=== PATIENT | male | born 1945 | race Caucasian/White ===

== ENCOUNTER 2017-12-01 09:50 | Inpatient (IN) | payer MEDICARE, SELFPAY ==
[2017-12-01 09:53] VITALS: BP 117/70; PULSE 113; RESP 16; TEMP 36.7; O2SAT 96; BMI 17.2
--- NOTE | 2017-12-01 10:05 | RAD_ITS ---
STUDY: X-RAY CHEST REASON FOR EXAM: Male, 72 years old. Nausea and vomiting since last evening. Patient is being treated with chemotherapy for small cell lung cancer. TECHNIQUE: Single AP portable view of the chest. COMPARISON: Prior comparison studies are not available for review at this time. FINDINGS: There is hyperinflation of the lungs consistent with chronic obstructive lung disease (COPD). There is a calcified nodule at the left lung base adjacent to the hemidiaphragm possibly representing granuloma. There is no demonstrated pleural abnormality. Normal size heart. There are calcified mediastinal and hilar lymph nodes. Normal visualized pulmonary arteries. There is atherosclerotic calcification of the aortic arch with tortuosity. There is demineralization of the osseous structures. There is mild curvature of the thoracic spine with convexity towards the right. Normal visualized ribs, clavicles, and shoulders. There is no demonstrated abnormality of the visualized soft tissue structures of the upper abdomen. RAD/Chest 1 View (Portable) IMPRESSION: COPD without radiographic evidence of acute cardiopulmonary disease. Electronically Signed: Shannon Gee MD at 10:25 EDT , Service support ,
--- NOTE | 2017-12-01 10:05 | CT_ITS ---
STUDY: CT ABDOMEN AND PELVIS WITH CONTRAST REASON FOR EXAM: Male, 72 years old. Epigastric and left lower quadrant abdominal pain. Patient has been treated for lung cancer. RADIATION DOSAGE (If Supplied By Facility): CTDIvol = ( 10.22 ) mGy, DLP = ( 332.19 ) mGycm TECHNIQUE: Transaxial images were obtained from the dome of the diaphragm to the symphysis pubis without oral contrast. 100 ml of Isovue 300 contrast was administered. Multiplanar coronal and sagittal images were reformatted. CT venogram protocol utilized, with delayed images performed during venous phase. Individualized Dose Optimization Techniques Were Used For This CT. COMPARISON: Prior comparable comparison studies are not available for review at this time. FINDINGS: The visualized lung bases are unremarkable. The visualized portions of the heart are within normal limits. There is a small pericardial effusion measuring 1.5 cm in thickness. Normal liver. There is a solitary gallstone. There are multiple benign calcified granulomata of the spleen. Normal pancreas. Normal bilateral adrenal glands. There is a low-attenuation lesion arising from the upper pole of the right kidney measuring approximately 11.2 mm in size. This has attenuation of 35 Hounsfield units suggesting it could be solid. There is a low-attenuation lesion arising from the upper pole of the left kidney measuring approximately 6.9 mm in size. This is too small to characterize. There is no evidence for hydronephrosis, hydroureter or radiopaque ureteral calculus. Normal visualized stomach. There is dilated small bowel with maximum transverse dimension of approximately 3.8 cm. This suggests sequela of small bowel obstruction. This appears to involve the proximal small bowel. The mid and distal small bowel is not dilated. The colon is not dilated. Stool is visible throughout the colon with scattered colonic diverticula. There is a small amount of pelvic fluid. The appendix is visualized and appears normal. There is diffuse atherosclerotic calcification of the abdominal aorta, without a demonstrated aneurysm. No retroperitoneal adenopathy. IVC is patent. Bilateral common iliac veins are widely patient without evidence of extrinsic compression or thrombus. Branches of the internal iliac veins show wide patency without evidence of varicosities. Bilateral external iliac veins and common femoral veins remain patent. Normal urinary bladder. There is enlargement of the prostate gland. There is a small umbilical hernia containing fat. There are diffuse degenerative changes of the visualized lumbar spine. There are degenerative changes of both hips. CT/Abdomen/Pelvis W IV Cont ONLY IMPRESSION: 1. CT findings suggest small bowel obstruction. 2. Possible solid right-sided renal mass. Follow-up is suggested. 3. Extensive vascular calcification of the abdominal aorta and iliac arteries. 4. Cholelithiasis. 5. Small pericardial effusion. Electronically Signed: Shannon Gee MD at 11:33 EDT , Service support ,
--- NOTE | 2017-12-01 10:05 | EKG12_ITS ---
Test Reason : ABNL PAIN Blood Pressure : / mmHG Vent. Rate : 104 BPM Atrial Rate : 104 BPM P-R Int : 148 ms QRS Dur : 082 ms QT Int : 348 ms P-R-T Axes : 084 084 070 degrees QTc Int : 457 ms Sinus tachycardia with Premature supraventricular complexes Otherwise normal ECG Confirmed by ADRIAN ENGEL, PEREZ ([id number]), video news editor INESSA SALINAS ([id number]) on 12/05/2017 1:48:11 PM Referred By: TANIYA Confirmed By:PEREZ CAMPBELL MD
--- NOTE | 2017-12-01 10:12 | ED.DCSUM_ITS ---
- ER Visit Summary Date of Service: 12/01/17 Chief Complaint: Nausea and vomiting History of Present Illness: The patient is a 72 M with non-small cell lung cancer status post chemotherapy. He presents with nausea, vomiting, abdominal pain, and decreased p.o. intake. Symptoms started yesterday and got worse today. Oncologist called concern for mucositis and stomatitis with weight loss. He is also neutropenic. He has also been complaining of shortness of breath. There was a concern for sepsis and he was sent for an evaluation and further care. Physical Examination: Tachycardic at 113. Afebrile. Vitals otherwise normal. Cachectic. Alert and oriented. Appears comfortable. Heart tachycardic but regular. Lungs clear bilaterally. Abdomen is slightly tender in the epigastric and left lower quadrant region. No guarding or rebound. Test Results: EKG, laboratory studies, cultures, urinalysis, chest x-ray, and abdominal CT pending. Emergency Department Course and Treatment: Patient was treated with fluids, morphine, and Zofran while awaiting results. He will be monitored. Neutropenic precautions. Patient is not neutropenic, hemoglobin 11.6 and platelets 108. Sodium 135 and glucose 142. Coags normal. Urinalysis pending. Troponin and lactate normal. Cultures pending. Chest x-ray showed chronic changes and COPD. CT abdomen showed signs of a small bowel obstruction as well as a right renal mass, cholelithiasis, vascular calcifications, and a small pericardial effusion. Patient remained stable. He was improved with fluids, morphine, and Zofran. NG was ordered. Hospitalist contacted for admission. His were given at this time because he did not have a fever or signs of sepsis and he is not neutropenic. Treatment Plan: As above. Disposition: Admission Impression: 1. Lung cancer 2. Mucositis 3. Small bowel obstruction This note was generated with [employer] dictation software. It may contain incorrect words, spelling, and punctuation that were not noted in review of the chart prior to signing ED Disposition - Plan for ED Patient: Chief Complaint: Abd Pain Referrals: Jonny Meyers [Primary Care Provider] -
[2017-12-01 10:31] LABS: Absolute Lymphocyte Count 2.84 X10^3/ul (0.83-4.51); Absolute Neutrophil Count 2.4 X10^3/uL (2.0-7.7); Basophil# 0.02 X10^3/uL; Basophil% 0.3 % (0-1); Eosinophil# 0.02 X10^3/uL; Eosinophils% 0.3 % (0-5); Hematocrit 34.1 % (40-54); Hemoglobin 11.6 g/dl (13.0-16.5); Lymphocyte # 2.84 X10^3/ul (4.0); Lymphocyte % 46.9 % (19-41); Mean Corpuscular Hgb 31.4 pg (27.0-32.0); Mean Corpuscular Volume 92.2 fL (80-94); Mean Platelet Vol. 9.6 fl (6.2-12.0); Monocyte# 0.78 X10^3/uL; Monocyte% 12.9 % (0-10); Neutrophil # 2.37 X10^3/uL (2.7-7.7); Neutrophil % 39.3 % (47-70); Platelet Count 108 K/mm3 (150-450); RBC Distribution Width SD 38.8 fl (35.1-43.9); White Blood Count 6.1 K/mm3 (4.4-11.0)
[2017-12-01 10:32] LABS: POSITIVE COUNT NO; POSITIVE DIFFERENTIAL NO; POSITIVE MORPHOLOGY NO
[2017-12-01] MEDS: Morphine 4 MG/ML Syringe IV (10:38)
[2017-12-01] MEDS: Ondansetron 4 MG/2 ML Vial IV (10:38)
[2017-12-01] MEDS: 0.9% Normal Saline 1,000 ML 999 ML IV (10:38)
[2017-12-01 10:40] VITALS: PULSE 100; RESP 11; TEMP 37.2; O2SAT 97
[2017-12-01 10:50] LABS: ALB/GLOB Ratio 1.1 RATIO (0.9-2.4); AST(SGOT) 12 U/L (15-37); Alanine Aminotransfer ALT/SGPT 13 U/L (16-61); Albumin, Serum 3.9 g/dL (3.2-5.0); Alkaline Phosphatase 86 U/L (45-117); Anion Gap 8 (5-15); BUN 11 mg/dL (7-18); BUN/Creat Ratio 13.9 RATIO (10-20); Chloride 98 mmol/L (98-107); Creatinine, Serum 0.79 mg/dL (0.70-1.30); EST Glomerular Filtration Rate 102 mL/min (>60); Est Glom Filt Rate - Afr Amer 124 mL/min (>60); Estimated Creatinine Clearance 48.51 ml/min; Globulin 3.7 g/dL (2.2-4.2); Glucose 142 mg/dL (74-106); Potassium 3.9 mmol/L (3.5-5.1); Protein, Total 7.6 g/dL (6.4-8.2); Sodium Level 135 mmol/L (136-145)
[2017-12-01 10:52] LABS: Lactic Acid 1.5 mmol/L (0.4-2.0)
[2017-12-01 11:00] LABS: International Normalized Ratio 1.1; Prothrombin Time (Protime)PT. 13.7 SECONDS (11.7-14.9)
--- NOTE | 2017-12-01 11:39 | CASEMGMT ---
Social Work Note In to complete initial assessment with pt as he was targeted as an anticipated admission. Introduced self and role at [facility]. Pt is accompanied by his ex-, Nicolasa, who he reports to live with in a one level home with 2-3 steps for entry and handrails. DME consists of oxygen through [employer], and pt states that he is independent with his ADLs and still drives. PCP is Dr. Jonny Meyers and his oncologist is Dr. Navarro. He has started chemo and he was scheduled for his 3rd treatment on November 21, but his platelets were too low. Discuss palliative care as pt has a cancer diagnosis and COPD. Explain services they provide and pt declines a referral at this time stating that he does not have any symptoms requiring management. Provide with palliative brochure to consider. RN CM to f/u on assigned unit. Christina Chaves, BAGGAGE INSPECTOR, [employer]CRA[employer]
[2017-12-01 12:00] VITALS: PULSE 96; RESP 21
[2017-12-01 12:18] VITALS: BP 135/82; PULSE 93; RESP 16; TEMP 37; O2SAT 96
[2017-12-01 13:24] VITALS: BP 121/74; PULSE 100; RESP 24; O2SAT 93
--- NOTE | 2017-12-01 13:27 | ED.RN ---
Attempted NG. PT was choking and unable to breathe, NG removed, PT recovered. PT asked us to give him a while to recover.
[2017-12-01 14:24] VITALS: BMI 17.1
[2017-12-01 14:26] VITALS: BMI 17.1
[2017-12-01] MEDS: 0.9% Normal Saline 1,000 ML 150 ML IV ×2 (14:53→22:11)
--- NOTE | 2017-12-01 15:24 | HP.PCM_ITS ---
Problem List (1) SBO (small bowel obstruction) Status: Acute (2) Non-small cell lung cancer Status: Chronic (3) Oral mucositis Status: Acute (4) Tobacco abuse Status: Chronic (5) COPD (chronic obstructive pulmonary disease) Status: Chronic History of Present Illness Date of Admission: 12/01/17 Chief Complaint: Nausea, vomiting The patient is a 72 year old M who presents to the emergency room with nausea, vomiting, abdominal pain which began yesterday. He states he has not been able to keep any food or liquids down. He notes a recent approximate 25 pound weight loss. He complains of painful mouth sores. He is currently undergoing chemotherapy with Dr. Navarro for non-small cell lung cancer. His last chemotherapy treatment was 11/21/17. He states he was supposed to have chemotherapy 11/28/17 which was canceled due to low platelets. He has current half pack per day smoker and has a history of COPD. His other medical history includes sleep apnea. He wears oxygen 2 L nasal cannula at bedtime. She denies fever, chills. Denies other associated complaints. States he had a normal bowel movement yesterday morning. Patient denies other chronic medical history. Past Medical History Past Medical History (Chronic Problems): Chronic Problems Non-small cell lung cancer (Chronic) Tobacco abuse (Chronic) COPD (chronic obstructive pulmonary disease) (Chronic) Allergies ethanolamine Allergy (Verified 09/20/14 16:35) Hives Influenza Virus Vaccines Allergy (Verified 12/01/17 09:56) Hives Surgical History: appendectomy Lives: Spouse/ Significant Other Smoking Status: Current every day smoker Tobacco Use: Cigarettes - 1/2 PPD Alcohol: None Drugs: None - *Family History Maternal History Items: No pertinent history Paternal History Items: No pertinent history Review of Systems Constitutional: Reports: Weight Change - -25 lbs. Denies: Chills, Fever HEENT: Reports: - - Painful mouth sores. Cardiovascular: Denies: Chest Pain, Light Headedness, Palpitations, Syncope Respiratory: Reports: Cough - Chronic, Shortness of breath upon exertion - Chronic. Denies: Shortness of Breath Gastrointestinal: Reports: Abdominal Pain, Nausea, Vomiting. Denies: Constipation, Diarrhea, Hematemesis, Hematochezia, Melena Genitourinary: Denies: Dysuria Musculoskeletal: Denies: Joint Pain, Joint Tenderness Skin: Denies: Rash, Wounds Neurological: Denies: Numbness, Tingling, Focal weakness Psychiatric: Denies: Anxiety, Depression, Homicidal Ideations, Suicidal Ideations Hematologic/ Lymphatic: Denies: Easy Bruising, Easy Bleeding VTE Information - Inpt Only VTE Present on Admission: No VTE Mechan Device Prophylaxis: None VTE Pharm Prophylaxis ordered?: Yes Patient Problems: Active and Suspected Problems SBO (small bowel obstruction) (Acute) Oral mucositis (Acute) - Physical Exam General: Alert, Oriented x3, Cooperative, No apparent distress, - - Cachectic HEENT: Atraumatic, PERRLA, EOMI, Normocephalic Oral: Dry Mucosa, Ulcerations Present Neck: Supple, No JVD, Negative Carotid Bruits Lungs: Clear to auscultation, Diminished Cardiovascular: Regular rate, Regular Rhythm, Normal S1, Normal S2, No murmurs Abdomen: Bowel Sounds Present, Soft, Non-Distended, Tender - Mild tenderness to palpation left upper quadrant/left lower quadrant Extremities: No clubbing, No cyanosis, No edema, Capillary Refill Less than 3 Seconds Skin: No rashes, No breakdown Musculoskeletal: No Tenderness to Palpation of Joints or Extremities Neurological: Cranial nerves II-XII grossly intact Psych/Mental Status: Normal Affect, Appropriate Vital Signs Temp Pulse Resp BP Pulse Ox 98.6 F 100 24 H 121/74 H 93 12/01/17 12:18 12/01/17 13:24 12/01/17 13:24 12/01/17 13:24 12/01/17 13:24 Oxygen Flow Rate (L/min) 3 Oxygen Delivery Method Nasal Cannula Weight: 49.583 kg Body Mass Index (BMI) 17.1 Assessment/Plan Active and Suspected Problems SBO (small bowel obstruction) (Acute) Oral mucositis (Acute) 1. Small bowel obstruction with associated nausea, vomiting-CT of abdomen shows small bowel obstruction, possible solid right-sided renal mass, extensive vascular calcification of the abdominal aorta and iliac arteries, cholelithiasis , small pericardial effusion. Patient denies abdominal pain currently. NG was attempted to be placed in the ER which was not successful. Patient denies nausea, vomiting currently. He states he has had poor oral intake due to painful mouth sores. Chest x-ray showed COPD. Remain n.p.o. Continue IV fluids. IV Protonix. Consult surgery. 2. Oral mucositis-secondary to chemotherapy. 3. Non-small cell lung cancer- Follows with Dr. Navarro. Last chemo 11/21/17. Consult oncology. 4. COPD with chronic hypoxic respiratory failure-wears 2 L nasal cannula at bedtime. No acute COPD exacerbation. Albuterol aerosols as needed. 5. Obstructive sleep apnea 6. Tobacco dependence-encourage smoking cessation. Declined nicotine replacement patch. 7. Severe protein calorie nutrition-BMI 17.1. Recent approximate 25 pound weight loss. Consult nutrition. DVT prophylaxis-Lovenox SC This patient was seen by Christina Dao NP-[place] under the supervision of Dr. Pacheco.
--- NOTE | 2017-12-01 16:49 | CON.PCM_ITS ---
Problem List (1) SBO (small bowel obstruction) Status: Acute (2) Non-small cell lung cancer Status: Chronic (3) Oral mucositis Status: Acute (4) Tobacco abuse Status: Chronic - Consult Date of Consult: 12/01/[address] Pacheco regarding patient with metastatic non- small cell lung cancer receiving chemotherapy present with small bowel obstruction and stomatitis. The recommendation will be communicated to Dr. Pacheco and also by electronic medical records - Reason for Consult History of Present Illness Date of Admission: 12/01/17 The patient is a 72 year old M who presents to the emergency room with intractable nausea, vomiting, abdominal pain which began yesterday. He states he has not been able to keep any food or liquids down. He lost 20 pounds since his diagnosis of metastatic lung cancer. Has history of tobacco abuse, COPD and hypertension who presented August with productive cough. CT chest showed a left mass with complete atelectasis hilar and mediastinal adenopathy. 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 Show no brain metastasis, PET scan was positive for left upper lobe tumor with mediastinal lymph node and a rib metastasis. no renal mass or adrenal metastasis. Pathology was also PD- L1 negative. He started chemotherapy 2 weeks ago with Abraxane & Carboplatin. Developed severe mucositis/stomatisis after chemotherapy. He was on nystatin & BMX suspension. Chemotherapy was held on Monday because of severe stomatitis neutropenia. patient still smoking half pack cigarettes per day. His last chemotherapy treatment was 11/21/17. He has a history of COPD. His other medical history includes sleep apnea. He wears oxygen 2 L nasal cannula at bedtime. He denies fever, chills. Denies other associated complaints. States he had a normal bowel movement yesterday morning. Surgical history appendectomy in 2006. No history of Crohn's disease or inflammatory bowel disease. In the emergency room, abdomen was distended and CT scan of the abdomen and pelvis showed small bowel obstruction in the terminal ileum. Additional renal mass? He denies shortness of breath or chest pain. Pain in his left rib has improved since starting chemotherapy. complaint of dry mouth and mouth sores Past Medical History Past Medical History (Chronic Problems): Chronic Problems Non-small cell lung cancer (Chronic) Tobacco abuse (Chronic) COPD (chronic obstructive pulmonary disease) (Chronic) Allergies ethanolamine Allergy (Verified 09/20/14 16:35) Hives Influenza Virus Vaccines Allergy (Verified 12/01/17 09:56) Hives Surgical History: appendectomy Lives: Spouse/ Significant Other Smoking Status: Current every day smoker Tobacco Use: Cigarettes - 1/2 PPD Alcohol: None Drugs: None - *Family History Maternal History Items: No pertinent history Paternal History Items: No pertinent history Review of Systems Constitutional: Reports: Weight Change - -20 lbs. Denies: Chills, Fever HEENT: Reports: - - Painful mouth sores. Cardiovascular: Denies: Chest Pain, Light Headedness, Palpitations, Syncope Respiratory: Reports: Cough - Chronic, Shortness of breath upon exertion - Chronic. Denies: Shortness of Breath Gastrointestinal: Reports: Abdominal Pain, Nausea, Vomiting. Denies: Constipation, Diarrhea, Hematemesis, Hematochezia, Melena Genitourinary: Denies: Dysuria Musculoskeletal: Denies: Joint Pain, Joint Tenderness Skin: Denies: Rash, Wounds Neurological: Denies: Numbness, Tingling, Focal weakness Psychiatric: Denies: Anxiety, Depression, Homicidal Ideations, Suicidal Ideations Hematologic/ Lymphatic: Denies: Easy Bruising, Easy Bleeding SBO (small bowel obstruction) (Acute) Oral mucositis (Acute) - Physical Exam General: Alert, Oriented x3, Cooperative, No apparent distress, - - Cachectic HEENT: Atraumatic, PERRLA, EOMI, Normocephalic Oral: Dry Mucosa, Ulcerations Present, no thrush Neck: Supple, No JVD, Negative Carotid Bruits Lungs: Clear to auscultation, Diminished Cardiovascular: Regular rate, Regular Rhythm, Normal S1, Normal S2, No murmurs Abdomen: Bowel Sounds Present, Soft, Distended, +Tender - Mild tenderness to palpation left upper quadrant/left lower quadrant Extremities: No clubbing, No cyanosis, No edema, Capillary Refill Less than 3 Seconds Skin: No rashes, No breakdown Musculoskeletal: No Tenderness to Palpation of Joints or Extremities Neurological: Cranial nerves II-XII grossly intact Psych/Mental Status: Normal Affect, Appropriate Vital Signs Temp Pulse Resp BP Pulse Ox 98.6 F 100 24 H 121/74 H 93 12/01/17 12:18 12/01/17 13:24 12/01/17 13:24 12/01/17 13:24 12/01/17 13:24 Oxygen Flow Rate (L/min) 3 Oxygen Delivery Method Nasal Cannula Weight: 49.583 kg Body Mass Index (BMI) 17.1 Labs (Last 48 Hours) 12/01/17 12/01/17 12/01/17 10:19 10:19 10:19 WBC 6.1 RBC 3.70 L Hgb 11.6 L Hct 34.1 L MCV 92.2 MCH 31.4 MCHC 34.0 RDW 12.0 RDW Differential 38.8 Plt Count 108 L MPV 9.6 Immature Gran % (Auto) 0.300 Neut % (Auto) 39.3 L Lymph % (Auto) 46.9 H [place] % (Auto) 12.9 H Eos % (Auto) 0.3 Baso % (Auto) 0.3 Absolute Neuts (auto) 2.4 Absolute Lymphs (auto) 2.84 Total Counted Not Reportable PT 13.7 INR 1.1 APTT 32.0 Sodium 135 L Potassium 3.9 Chloride 98 Carbon Dioxide 29.0 Anion Gap 8 BUN 11 Creatinine 0.79 Estim Creat Clear Calc 48.51 Est GFR (MDRD) Af Amer 124 Est GFR (MDRD) Non-Af 102 BUN/Creatinine Ratio 13.9 Glucose 142 H Lactic Acid Calcium 9.0 Total Bilirubin 0.50 AST 12 L ALT 13 L Alkaline Phosphatase 86 Troponin I < 0.02 Total Protein 7.6 Albumin 3.9 Globulin 3.7 Albumin/Globulin Ratio 1.1 12/01/17 10:19 WBC RBC Hgb Hct MCV MCH MCHC RDW RDW Differential Plt Count MPV Immature Gran % (Auto) Neut % (Auto) Lymph % (Auto) [place] % (Auto) Eos % (Auto) Baso % (Auto) Absolute Neuts (auto) Absolute Lymphs (auto) Total Counted PT INR APTT Sodium Potassium Chloride Carbon Dioxide Anion Gap BUN Creatinine Estim Creat Clear Calc Est GFR (MDRD) Af Amer Est GFR (MDRD) Non-Af BUN/Creatinine Ratio Glucose Lactic Acid 1.5 Calcium Total Bilirubin AST ALT Alkaline Phosphatase Troponin I Total Protein Albumin Globulin Albumin/Globulin Ratio Assessment/Plan Active and Suspected Problems SBO (small bowel obstruction) (Acute) Oral mucositis (Acute) Metastatic non-small cell lung cancer on active chemotherapy (Chronic) Recommendations: -Keep n.p.o. surgical evaluation. -IV Fluid replacement & hold NG tube unless patient start vomiting again -PPI & monitor electrolytes -Start Zosyn & Diflucan for possible ileitis/typhlitis -Mouth care & morphine IV as needed for pain -Docolax suppository constipation. -Follow-up KUB-xray morning. -Chemotherapy on hold until patient recovers; I will see him Monday in my office. cc: Dr. Geoffrey Navarro; Dr. Jonny Meyers; Dr. Barb Abad; Dr. Desire Pacheco.
--- NOTE | 2017-12-01 17:43 | PCM.CONS.B ---
- Consult Date of Consult: 12/01/17 - Reason for Consult PATIENT NAME: Kartik Perez. Chief complaint: Metastatic non-small cell lung cancer, history of COPD - I am consulted for SBO HPI: 71 year old pleasant gentleman with history of COPD, hypertension and tobacco abuse who presents with left lung cancer, presently on chemotherapy. Has long history of COPD. Admitted to hospital for nausea/emesis for which patient states that he had all night long. Also with abdominal pain. Presented to ED - normal WBC, normal temp. Because of abdominal pain, CT scan obtained - CT scan obtained - IMPRESSION: 1. CT findings suggest small bowel obstruction. 2. Possible solid right-sided renal mass. Follow-up is suggested. 3. Extensive vascular calcification of the abdominal aorta and iliac arteries. 4. Cholelithiasis. 5. Small pericardial effusion. On examination: patient states that he has passed flatus. Denies abdominal pain. Feels much improved. PAST MEDICAL HISTORY: Chronic obstructive pulmonary disease (COPD) (HCC) Diabetes (HCC) Hypertension Primary cancer of left upper lobe of lung (HCC) 09/18/2017 Squamos cell, 09/08/2017 Stroke (HCC) Tobacco use disorder, continuous PAST SURGICAL HISTORY: APPENDECTOMY 2006 COLONOSCOP W/ OR W/O [facility] SPEC 02/11/2016 Colonoscopy repeat 08/2016 COLONOSCOP W/ OR W/O [facility] SPEC 01/26/2017 Colonoscopy COLONOSCOPY 2006 CURRENT MEDICATIONS: ASPIRIN/ACETAMINOPHEN/CAFFEINE (EXCEDRIN EXTRA STRENGTH ORAL) Take 1 tablet by mouth twice daily. vophevpfttTEUEJ-kpwdan-syhlsdmzw (BMX 1:1:1) 1:1:1 liqd albuterol HFA (VENTOLIN HFA) 90 mcg/actuation inhaler Inhale 2 Puffs as instructed every 4 hours as needed for Wheezing/Shortness of Breath. amoxicillin-clavulanic acid (AUGMENTIN) 875-125 mg per tablet azithromycin (ZITHROMAX) 250 mg tablet LIDOCAINE VISCOUS 2 % solution predniSONE (DELTASONE) 20 mg tablet umeclidinium-vilanterol (ANORO ELLIPTA) 62.5-25 mcg/actuation inhaler Inhale 1 Inhalation as instructed once daily. fluticasone (FLONASE) 50 mcg/actuation nasal spray Use 2 Sprays in each nostril once daily. Rinse mouth after use. nystatin (MYCOSTATIN) 100,000 unit/mL suspension Take 5 mL by mouth four times daily. 1tsp swish in mouth for several minutes, aspirin, enteric coated (ASPIRIN, ENTERIC COATED) 81 mg EC tablet Take 81 mg by mouth once daily. ALLERGIES: Flu Vaccine 2011 Hives FAMILY HISTORY: Adopted: Yes Cancer Sister Lymphoma. Cancer Sister Thyroid. Cancer Sister Throat. 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 Social History Main Topics Smoking status: Current Every Day Smoker Packs/day: 0.50 Years: 0.00 Types: Cigarettes Start date: 1968 Smokeless status: Never Used Comment: Parents smoked in childhood home. Alcohol use: No Drug use: No Sexual activity: No REVIEW OF SYSTEMS: CONSTITUTIONAL: denies fevers, has had weight loss CARDIOVASCULAR: + left chest pain & left shoulder/neck, dyspnea, palpitations, orthopnea, PND, ankle edema. PULM: No dyspnea, + unexplained cough. GI: see HPI : No new urinary complaints, including dysuria, gross hematuria or pyuria. NEURO: No new balance problems, peripheral weakness/paresthesias or numbness of concern. MUSC-SKEL: No new joint pain, swelling, or erythema. ENDOCRINE: denies diabetes PSY: No concerns regarding depression, anxiety or panic. INTEGUMENTARY: No new skin changes (rash, new or changing mole, new growth) PHYSICAL EXAMINATION: 71-year-old thin but not cachectic gentleman appeared to be in acute distress. Temp: 98.2 BP 147/77 Wt 115 lb BMI 19.16 kg/(m^2). HEENT: Head is normocephalic, atraumatic. Sclerae white, conjunctivae pink. PEERL. EOMs are intact. Oropharynx is benign. LYMPHATICS: There is no palpable adenopathy in the neck, supraclavicular region, axillae, or groin. LUNGS: increased AP diameter, Lungs are clear to percussion and auscultation. no wheezing or rales + Left lateral lower rib tenderness with palpation. HEART: Heart is normal without murmurs, gallops, or rubs. ABDOMEN: Soft and nontender, normal bowel sounds, not distended EXTREMITIES: Are without edema. NEUROLOGIC: Exam is physiologic Impression: Known metastatic left lung cancer Presently on chemotherapy SBO by CT scan - clinically resolved Discussion/Plan: patient is presently passing flatus feels hungry Will proceed to clear liquid diet and advance as tolerated ambulation is encouraged
[2017-12-01 17:52] LABS: Bacteria 0 SEEN /hpf (None Seen); Mucous, Urine 0 SEEN /hpf (<or=2+); Red Blood Cells-Urine 0 SEEN /hpf (0-5); White Blood Cells 0 SEEN /hpf (0-5)
[2017-12-01 17:54] LABS: Color, Urine Yellow (Yellow); Glucose, Dipstick Normal (Normal); Leukocyte Esterase-Dipstick Negative /ul (Negative); Nitrite-Dipstick Negative (Negative); Occult Blood-Urine Negative /ul (Negative); Protein-Dipstick 30 mg/dl (Negative); Specific Gravity, Urine 1.015 (1.002-1.030); Urine Bilirubin Dipstick Negative (Negative); Urine Clarity Sl. Cloudy (Clear); Urine Urobilinogen Normal (Normal); Urine pH 6.5 (5.0 - 8.0)
[2017-12-01 17:57] LABS: Ketone-Dipstick 150 mg/dl (Negative)
--- NOTE | 2017-12-01 18:08 | CON.PCM_ITS ---
- Consult Date of Consult: 12/01/17 - Reason for Consult PATIENT NAME: Kartik Perez. Chief complaint: Metastatic non-small cell lung cancer, history of COPD - I am consulted for SBO HPI: 71 year old pleasant gentleman with history of COPD, hypertension and tobacco abuse who presents with left lung cancer, presently on chemotherapy. Has long history of COPD. Admitted to hospital for nausea/emesis for which patient states that he had all night long. Also with abdominal pain. Presented to ED - normal WBC, normal temp. Because of abdominal pain, CT scan obtained - CT scan obtained - IMPRESSION: 1. CT findings suggest small bowel obstruction. 2. Possible solid right-sided renal mass. Follow-up is suggested. 3. Extensive vascular calcification of the abdominal aorta and iliac arteries. 4. Cholelithiasis. 5. Small pericardial effusion. On examination: patient states that he has passed flatus. Denies abdominal pain. Feels much improved. 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 qyzubhzklxQKTVZ-gpyjlh-jxgejpaht (BMX 1:1:1) 1:1:1 liqd albuterol HFA (VENTOLIN HFA) 90 mcg/actuation inhaler Inhale 2 Puffs as instructed every 4 hours as needed for Wheezing/Shortness of Breath. amoxicillin-clavulanic acid (AUGMENTIN) 875-125 mg per tablet azithromycin (ZITHROMAX) 250 mg tablet LIDOCAINE VISCOUS 2 % solution predniSONE (DELTASONE) 20 mg tablet umeclidinium-vilanterol (ANORO ELLIPTA) 62.5-25 mcg/actuation inhaler Inhale 1 Inhalation as instructed once daily. fluticasone (FLONASE) 50 mcg/actuation nasal spray Use 2 Sprays in each nostril once daily. Rinse mouth after use. nystatin (MYCOSTATIN) 100,000 unit/mL suspension Take 5 mL by mouth four times daily. 1tsp swish in mouth for several minutes, aspirin, enteric coated (ASPIRIN, ENTERIC COATED) 81 mg EC tablet Take 81 mg by mouth once daily. ALLERGIES: Flu Vaccine 2011 Hives FAMILY HISTORY: Adopted: Yes Cancer Sister Lymphoma. Cancer Sister Thyroid. Cancer Sister Throat. SOCIAL HISTORY: Social History Marital status: Spouse name: Years of education: Number of children: 3 Occupational History Occupation Employer Comment [employer]. 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 Social History Main Topics Smoking status: Current Every Day Smoker Packs/day: 0.50 Years: 0.00 Types: Cigarettes Start date: 1968 Smokeless status: Never Used Comment: Parents smoked in childhood home. Alcohol use: No Drug use: No Sexual activity: No REVIEW OF SYSTEMS: CONSTITUTIONAL: denies fevers, has had weight loss CARDIOVASCULAR: + left chest pain & left shoulder/neck, dyspnea, palpitations, orthopnea, PND, ankle edema. PULM: No dyspnea, + unexplained cough. GI: see HPI : No new urinary complaints, including dysuria, gross hematuria or pyuria. NEURO: No new balance problems, peripheral weakness/paresthesias or numbness of concern. MUSC-SKEL: No new joint pain, swelling, or erythema. ENDOCRINE: denies diabetes PSY: No concerns regarding depression, anxiety or panic. INTEGUMENTARY: No new skin changes (rash, new or changing mole, new growth) PHYSICAL EXAMINATION: 71-year-old thin but not cachectic gentleman appeared to be in acute distress. Temp: 98.2 BP 147/77 Wt 115 lb BMI 19.16 kg/(m^2). HEENT: Head is normocephalic, atraumatic. Sclerae white, conjunctivae pink. PEERL. EOMs are intact. Oropharynx is benign. LYMPHATICS: There is no palpable adenopathy in the neck, supraclavicular region , axillae, or groin. LUNGS: increased AP diameter, Lungs are clear to percussion and auscultation. no wheezing or rales + Left lateral lower rib tenderness with palpation. HEART: Heart is normal without murmurs, gallops, or rubs. ABDOMEN: Soft and nontender, normal bowel sounds, not distended EXTREMITIES: Are without edema. NEUROLOGIC: Exam is physiologic Impression: Known metastatic left lung cancer Presently on chemotherapy SBO by CT scan - clinically resolved Discussion/Plan: patient is presently passing flatus feels hungry Will proceed to clear liquid diet and advance as tolerated ambulation is encouraged
[2017-12-01 18:19] LABS: Squamous Epithelial Cells - UA 0-5 SEEN /hpf (0-5)
[2017-12-01] MEDS: Bisacodyl 10 MG Suppository RECTAL (18:35)
[2017-12-01 20:55] VITALS: BP 148/72; PULSE 91; RESP 16; TEMP 36.8; O2SAT 97
[2017-12-01] MEDS: Piperacil/Tazobactam 3.375 GM/50 ML ML IV (22:12)
[2017-12-02 03:25] VITALS: BP 112/66; PULSE 89; RESP 18; TEMP 36.8; O2SAT 97
[2017-12-02] MEDS: 0.9% Normal Saline 1,000 ML 150 ML IV (05:23)
[2017-12-02] MEDS: Piperacil/Tazobactam 3.375 GM/50 ML ML IV (05:58)
[2017-12-02 07:28] LABS: Hematocrit 27.3 % (40-54); Hemoglobin 8.9 g/dl (13.0-16.5); Mean Corp Hgb Conc 32.6 g/gl (32-36); Mean Corpuscular Hgb 30.8 pg (27.0-32.0); Mean Corpuscular Volume 94.5 fL (80-94); Mean Platelet Vol. 9.8 fl (6.2-12.0); Platelet Count 94 K/mm3 (150-450); RBC Distribution Width SD 39.6 fl (35.1-43.9); Red Blood Count 2.89 M/mm3 (4.6-6.2); White Blood Count 5.9 K/mm3 (4.4-11.0)
[2017-12-02 07:30] LABS: Scan Indicated on CBC? Y/N NO
[2017-12-02 07:40] LABS: Anion Gap 7 (5-15); BUN 6 mg/dL (7-18); BUN/Creat Ratio 11.4 RATIO (10-20); Calcium,Total 7.8 mg/dL (8.5-10.1); Chloride 107 mmol/L (98-107); Creatinine, Serum 0.53 mg/dL (0.70-1.30); EST Glomerular Filtration Rate 164 mL/min (>60); Est Glom Filt Rate - Afr Amer 199 mL/min (>60); Estimated Creatinine Clearance 48.21 ml/min; Glucose 93 mg/dL (74-106); Potassium 3.8 mmol/L (3.5-5.1); Sodium Level 140 mmol/L (136-145)
[2017-12-02 08:13] VITALS: BP 114/75; PULSE 88; RESP 18; TEMP 36.7; O2SAT 96
--- NOTE | 2017-12-02 10:03 | PN.SURG_ITS ---
Subjective: patient feeling well denies abdominal pain has had bowel movements passing flatus - Physical Exam General: Alert, Oriented x3 Oral: Moist Mucosa Neck: Supple Abdomen: Bowel Sounds Present, Soft, Non Tender Vital Signs Temp Pulse Resp BP Pulse Ox 98.1 F 88 18 114/75 96 12/02/17 08:13 12/02/17 08:13 12/02/17 08:13 12/02/17 08:13 12/02/17 08:13 Oxygen Flow Rate (L/min) 3 Oxygen Delivery Method Room Air Weight: 49.583 kg Body Mass Index (BMI) 17.1 Intake and Output for Last 24 Hours 11/30/17 12/01/17 12/02/17 23:59 23:59 23:59 Intake Total 890 / 890 2323 / 2323 Output Total 725 / 725 Balance 890 / 890 1598 / 1598 Laboratory Tests Past 24 Hrs 12/01/17 12/02/17 12/02/17 17:45 06:34 06:34 WBC 5.9 RBC 2.89 L Hgb 8.9 L Hct 27.3 L MCV 94.5 H MCH 30.8 MCHC 32.6 RDW 12.0 RDW Differential 39.6 Plt Count 94 L MPV 9.8 Sodium 140 Potassium 3.8 Chloride 107 Carbon Dioxide 26.0 Anion Gap 7 BUN 6 L Creatinine 0.53 L Estim Creat Clear Calc 48.21 Est GFR (MDRD) Af Amer 199 Est GFR (MDRD) Non-Af 164 BUN/Creatinine Ratio 11.4 Glucose 93 Calcium 7.8 L Urine Color Yellow Urine Clarity Sl. Cloudy Urine pH 6.5 Ur Specific [place] 1.015 Urine Protein 30 H Urine Glucose (UA) Normal Urine Ketones 150 H Urine Occult Blood Negative Urine Nitrite Negative Urine Bilirubin Negative Urine Urobilinogen Normal Ur Leukocyte Esterase Negative Urine RBC 0 SEEN Urine WBC 0 SEEN Ur Squamous Epith Cells 0-5 SEEN Urine Bacteria 0 SEEN Urine Mucus 0 SEEN Medical Necessity - Tobacco Use Smoking Status: Current every day smoker Tobacco Use: Cigarettes - 1/2 PPD Assessment/Plan Impression: SBO - resolved Plan: from surgical standpoint - can d/c to home I have stressed adequate hydration to the patient - he states that the oral sores can be problematic - but he can do lidocaine swish and swallows, etc. I have also counseled patient to avoid caffeinated products I have encouraged walking/ambulation
[2017-12-02] MEDS: Enoxaparin 40 MG/0.4 ML Syringe SC (10:55)
--- NOTE | 2017-12-02 12:19 | PCM.DC ---
- Discharge Diagnoses Current Active Problems: Current Active and Chronic Problems SBO (small bowel obstruction) (Acute) Non-small cell lung cancer (Chronic) Oral mucositis (Acute) Tobacco abuse (Chronic) COPD (chronic obstructive pulmonary disease) (Chronic) You will use the following diet at home:: No restrictions Your food should be the consistency of: Regular Your liquids should be the consistency of: Regular/Thin Discharge Activity: Return to Normal Activity Allergies/Adverse Reactions: Allergies ethanolamine Allergy (Verified 09/20/14 16:35) Hives Influenza Virus Vaccines Allergy (Verified 12/01/17 09:56) Hives Medications to take at Discharge morphine solution (IR) [Roxanol (IR oral solution)] 2.5 mg PO Q3H PRN 12/01/17 Primary Care Physician: Jonny Meyers [Primary Care Provider] - Please follow up with your Primary Care Physician in: 5 to 7 days. Please Follow Up With: Geoffrey Navarro MD When: as scheduled.
--- NOTE | 2017-12-02 12:20 | PCM.DC.SUM ---
Discharge Date and Diagnosis - Problem List Patient Problems: Active and Suspected Problems SBO (small bowel obstruction) (Acute) Oral mucositis (Acute) Date of Admission: 12/01/17 Date of Discharge: 12/02/17 - Primary Discharge Diagnosis Active and Suspected Problems SBO (small bowel obstruction) (Acute) Oral mucositis (Acute) - Secondary Discharge Diagnosis Chronic Problems Non-small cell lung cancer (Chronic) Tobacco abuse (Chronic) COPD (chronic obstructive pulmonary disease) (Chronic) Hospital Course and Treatment Imaging Results: Diagnostic Data Abdomen/Pelvis CT 12/01/17 10:05 IMPRESSION: 1. CT findings suggest small bowel obstruction. 2. Possible solid right-sided renal mass. Follow-up is suggested. 3. Extensive vascular calcification of the abdominal aorta and iliac arteries. 4. Cholelithiasis. 5. Small pericardial effusion. Electronically Signed: Shannon Gee MD at 11:33 EDT , Service support , Chest X-Ray 12/01/17 10:05 IMPRESSION: COPD without radiographic evidence of acute cardiopulmonary disease. Electronically Signed: Shannon Gee MD at 10:25 EDT , Service support , CARD DECORATOR: Dr. Barb Beatty, surgery Dr. Navarro, oncology. Operations: None Procedures: None Summary of Care Provided: patient is a 72YO male admitted with SBO. He is currently receiving chemotherapy from Dr. Bermeo for metastatic non-small cell lung CA. Last chemo was 2 weeks ago. He has had an appendectomy in the past. Past medical history is positive for ongoing tobacco dependence, COPD, LARRY and hypertension. His last BM was about [address] of the abd and the pelvis done in the ER showing findings suggestive of SBO. He was admitted to medical floor. Oncology and surgery were consulted. Dr. Navarro had stated Zosyn and Diflucan empirically for possible ileitis. With Dr. Abad's evaluation, he was already started to pass gas and felt hungry. Diet was advanced, tolerated regular meal. WBC remained normal, and he has been afebrile. He has no abdominal pain, and n/v had resolved. Plan to discharge to home with no change from previous therapy. Discharge Diet: No Restrictions Discharge Activity: Return to Normal Activity Home Medications: Medications to take at Discharge morphine solution (IR) [Roxanol (IR oral solution)] 2.5 mg PO Q3H PRN 12/01/17 Primary Care Physician: Jonny Meyers [Primary Care Provider] - Please follow up with your Primary Care Physician in: 5 to 7 days. Please Follow Up With: Geoffrey Navarro MD When: as scheduled. Disposition: Home Patient Condition:: Good Medical Necessity - Tobacco Use Smoking Status: Current every day smoker Tobacco Use: Cigarettes - 1/2 PPD Meaningful Use Info Meaningful Use Diagnoses (Choose all that apply): None applicable Code Visit Inpatient E&M: 50534 Disch Hosp
--- NOTE | 2017-12-02 12:26 | DS.PCM_ITS ---
Discharge Date and Diagnosis - Problem List Patient Problems: Active and Suspected Problems SBO (small bowel obstruction) (Acute) Oral mucositis (Acute) Date of Admission: 12/01/17 Date of Discharge: 12/02/17 - Primary Discharge Diagnosis Active and Suspected Problems SBO (small bowel obstruction) (Acute) Oral mucositis (Acute) - Secondary Discharge Diagnosis Chronic Problems Non-small cell lung cancer (Chronic) Tobacco abuse (Chronic) COPD (chronic obstructive pulmonary disease) (Chronic) Hospital Course and Treatment Imaging Results: Diagnostic Data Abdomen/Pelvis CT 12/01/17 10:05 IMPRESSION: 1. CT findings suggest small bowel obstruction. 2. Possible solid right-sided renal mass. Follow-up is suggested. 3. Extensive vascular calcification of the abdominal aorta and iliac arteries. 4. Cholelithiasis. 5. Small pericardial effusion. Electronically Signed: Shannon Gee MD at 11:33 EDT , Service support , Chest X-Ray 12/01/17 10:05 IMPRESSION: COPD without radiographic evidence of acute cardiopulmonary disease. Electronically Signed: Shannon Gee MD at 10:25 EDT , Service support , RUBBER FLAP TUBER MACHINE OPERATOR: Dr. Barb Beatty, surgery Dr. Navarro, oncology. Operations: None Procedures: None Summary of Care Provided: patient is a 72YO male admitted with SBO. He is currently receiving chemotherapy from Dr. Bermeo for metastatic non-small cell lung CA. Last chemo was 2 weeks ago. He has had an appendectomy in the past. Past medical history is positive for ongoing tobacco dependence, COPD, LARRY and hypertension. His last BM was about [address] of the abd and the pelvis done in the ER showing findings suggestive of SBO. He was admitted to medical floor. Oncology and surgery were consulted. Dr. Navarro had stated Zosyn and Diflucan empirically for possible ileitis. With Dr. Abad's evaluation, he was already started to pass gas and felt hungry. Diet was advanced, tolerated regular meal. WBC remained normal, and he has been afebrile. He has no abdominal pain, and n/v had resolved. Plan to discharge to home with no change from previous therapy. Discharge Diet: No Restrictions Discharge Activity: Return to Normal Activity Home Medications: Medications to take at Discharge morphine solution (IR) [Roxanol (IR oral solution)] 2.5 mg PO Q3H PRN 12/01/17 Primary Care Physician: Jonny Meyers [Primary Care Provider] - Please follow up with your Primary Care Physician in: 5 to 7 days. Please Follow Up With: Geoffrey Navarro MD When: as scheduled. Disposition: Home Patient Condition:: Good Medical Necessity - Tobacco Use Smoking Status: Current every day smoker Tobacco Use: Cigarettes - 1/2 PPD Meaningful Use Info Meaningful Use Diagnoses (Choose all that apply): None applicable Code Visit Inpatient E&M: 89699 Disch Hosp
[2017-12-02 12:53] VITALS: BP 141/75; PULSE 87; RESP 16; TEMP 36.5; O2SAT 98
--- NOTE | 2017-12-04 15:29 | CASEMGMT ---
OSCAR DESHPANDE Discharge Follow-up Phone Call: TOM: 9 Strata: 3 Call Date: 12/04/17 Discharge Date: 12/02/17 Time of Call: [id number] Duration: 5 minutes Admitting Diagnosis: SBO OSCAR DESHPANDE spoke with patient's ex- Nicolasa, who lives and takes care of patient. Patient was sleeping at the time of call. Nicolasa states that patient is doing much better. Is breathing well and eating better. Nicolasa stated that she had no questions or concerns regarding discharge instructions. She stated that the patient had seen Dr. Navarro today. Nicolasa was going to be calling Dr. Meyers to schedule follow-up appt. Nicolasa had no further questions or concerns at this time. No appointments were schedule prior to discharge.
== END 2017-12-02 13:14 | disposition home or self-care (01) | DRG 388 ==
LOC: ED 10:35 → MS3 13:02
PROVIDERS: Nurse Practitioner Family; Admitting Provider Internal Medicine; Emergency Provider Emergency Medicine; Family Provider Student in an Organized Health Care Education/Training Program; PCP Student in an Organized Health Care Education/Training Program; Visit Provider Hospitalist
DX: K56.609 Unspecified intestinal obstruction, unspecified as to partial versus complete obstruction (principal); E43 Unspecified severe protein-calorie malnutrition; C34.12 Malignant neoplasm of upper lobe, left bronchus or lung; C79.51 Secondary malignant neoplasm of bone; C77.1 Secondary and unspecified malignant neoplasm of intrathoracic lymph nodes; J96.11 Chronic respiratory failure with hypoxia; Z68.1 Body mass index [BMI] 19.9 or less, adult; J44.9 Chronic obstructive pulmonary disease, unspecified; G47.33 Obstructive sleep apnea (adult) (pediatric); I10 Essential (primary) hypertension; F17.210 Nicotine dependence, cigarettes, uncomplicated; K12.30 Oral mucositis (ulcerative), unspecified; Z79.899 Other long term (current) drug therapy; I70.0 Atherosclerosis of aorta
CPT/HCPCS: 36415; 71045; 74177; 80048; 80053; 81001; 83605; 84484; 85025; 85027; 85610; 85730; 87040; 87086; 93005; 97161; 97802; 99282; 99406; J7030; Q9967; A4216; J2405

== ENCOUNTER → 2017-12-25 12:36 | Outpatient (CLI) | payer MEDICARE, SELFPAY ==
--- NOTE | 2017-12-25 13:00 | RAD_ITS ---
STUDY: SWALLOWING STUDY REASON FOR EXAM: Male, 72 years old. Dysphagia. History of lung cancer. TECHNIQUE: The examination was performed with Speech Pathology in attendance. Under fluoroscopic observation, the patient ingested thin barium, thick barium, barium pudding, and barium coated cracker. FLUOROSCOPY TIME: 0:28 minutes/seconds. 2118 spot images were obtained. RADIOLOGIST INVOLVEMENT: Radiologist was present and providing direct supervision. COMPARISON: None. FINDINGS: The following was observed during swallowing of the various mixtures of barium: Thin Barium: There is evidence of aspiration with ingestion of thin liquids on sequential swallows. With ingestion of thin liquids during single swallows, there was no evidence of aspiration. Barium Pudding: There was no evidence of aspiration or laryngeal penetration. Barium Coated Cracker: There was no evidence of aspiration or laryngeal penetration. RAD/Swallowing Function w/Video IMPRESSION: Aspiration with ingestion of thin liquids on sequential swallows. The swallow study findings were discussed with the patient by the speech pathologist at the conclusion of the examination. Please see speech pathology report for more information and recommendations. Electronically Signed: Juan Winslow MD at 14:19 EDT Tel [phone], Service support ,
--- NOTE | 2017-12-25 13:00 | SP.MBSS_ITS ---
PRIMARY / SECONDARY DIAGNOSIS: dysphagia (R13.10) REFERRING PHYSICIAN: Dr. Geoffrey Navarro MD CURRENT DIET: regular textures, thin liquids DENTITION: edentulous MENTAL STATUS: WNL RESPIRATORY STATUS: O2 via room air PREVIOUS MODIFIED BARIUM SWALLOW STUDY: none REASON FOR REFERRAL: Patient is a 72 year old male referred for a modified barium swallow (MBS) study to objectively assess the Patients oropharyngeal swallow function under fluoroscopy secondary to reported coughing during ingestion of thin liquids, occurring approximately 1 month prior to study. Patient reports coughing with thin liquids occurring following attempted nasogastric tube placement, with frequent coughing with all liquids over a 2 week period, which according to the Patients report has since resolved. Patient recently undergoing chemotherapy with Dr. Navarro for non-small cell lung cancer, last chemotherapy treatment was 10/2017; planned chemotherapy 11/28/2017, though was canceled due to low platelets. Patient reports recent approximate 25 pound weight loss, presents with painful mouth sores that have mildly impacted intake quantity. 12/01/2017 CXR revealed COPD without radiographic evidence of acute cardiopulmonary disease. MEDICAL HISTORY: Non-small cell lung cancer, chronic obstructive pulmonary disease, tobacco abuse (Chronic) STUDY FINDINGS: Patient participated in a Modified Barium Swallow (MBS) study on 12/25/2017. Dr. Winslow was the radiologist present for this evaluation. This study was recorded in the lateral view and images were sent to PACs for storage. The following consistencies were presented to this patient for analysis of oropharyngeal swallow function: thin liquids, pudding, and a regular textured, Kiesha Doone cookie. Results of the MBS are as follows: PENETRATION / ASPIRATION SCALE (GARCIA): 1 = does not enter airway 2 = enters airway/above vocal folds/ejected 3 = enters airway/above vocal folds/not ejected 4 = enters airway/contacts vocal folds/ejected 5 = enters airway/contacts vocal folds/not ejected 6 = enters airway/below vocal folds/ejected 7 = enters airway/below vocal folds/not ejected despite effort 8 = enters airway/below vocal folds/no effort VIDEOFLOROSCOPIC SCALE SCORE (GARCIA): Grade I = aspiration of material that has penetrated into the laryngeal vestibule, intact cough reflex Grade II = aspiration < 10 % of the bolus, intact cough reflex Grade III = aspiration of < 10 % of the bolus, reduced cough reflex or aspiration of > 10 % of the bolus, intact cough reflex Grade IV = aspiration of > 10 % of the bolus, reduced cough reflex PENETRATION / ASPIRATION SCALE (SCORE) WITH VIDEOFLOROSCOPIC SCALE SCORE: Thin liquids via cup (single sip): 3, 5* Thin liquids via cup (single sip): 2 Thin liquids via cup (sequential swallows): 7 - Grade III Pudding via spoon: 1 Regular textured cookie: 1 Thin liquids via cup (single sip): 1 Thin liquids via cup (single sip): 1 Thin liquids via cup (single sip): 1 * denotes continuation of penetration post deglutition IMPRESSION: DIAGNOSIS: mild to moderate oropharyngeal dysphagia (R13.12) ORAL PHASE CHARACTERIZED BY: LABIAL SEAL: no labial escape TONGUE CONTROL DURING BOLUS MANIPULATION: cohesive bolus between tongue to palatal seal BOLUS PREPARATION / MASTICATION: slow prolonged chewing/mashing with complete recollection attributed to edentulous status and intraoral pain BOLUS TRANSPORT / LINGUAL MOTION: brisk tongue motion ORAL RESIDUE: trace residue lining oral structures PHARYNGEAL PHASE CHARACTERIZED BY: INITIATION OF PHARYNGEAL SWALLOW: bolus head in valleculae at first hyoid excursion SOFT PALATE ELEVATION: no bolus between soft palate and pharyngeal wall LARYNGEAL ELEVATION: complete superior movement of thyroid cartilage with complete approximation of arytenoids cartilage to epiglottic petiole ANTERIOR HYOID EXCURSION: partial anterior movement EPIGLOTTIC MOVEMENT: complete epiglottic inversion LARYNGEAL VESTIBULE CLOSURE AT HEIGHT OF SWALLOW: incomplete laryngeal vestibule closure with narrow column of air/contrast in laryngeal vestibule PHARYNGEAL STRIPPING WAVE: pharyngeal stripping wave present / diminished PHARYNGOESOPHAGEAL SEGMENT OPENING: complete distension and complete duration with no obstruction of flow TONGUE BASE RETRACTION: narrow column of contrast between tongue base and posterior pharyngeal wall PHARYNGEAL RESIDUE: intermittent collection of residue within or on pharyngeal structures ESOPHAGEAL PHASE CHARACTERIZED BY: ESOPHAGEAL BOLUS CLEARANCE IN THE UPRIGHT POSITION: could not view EFFECTS OF TREATMENT STRATEGIES ATTEMPTED: Liquid chaser = effective Reduced bolus size = effective DIET TEXTURE RECOMMENDATIONS: Will recommend a regular-soft textured, thin liquid diet. COMPENSATORY STRATEGIES RECOMMENDED: Reduced bolus volume, liquid chaser, seated upright at 90 degrees during PO intake, remain upright for 30-60 minutes post meal (GERD precaution) INTERPRETATION OF RESULTS: Patient presents with mild to moderate oropharyngeal dysphagia (R13.12) likely attributed to a combination of chronic obstructive pulmonary disease, non-small cell lung cancer status post chemotherapy intervention, and secondary presbyphagia. Oral phase primarily marked by mild mastication inefficiency ( albeit effective) associated with edentulous status complicated by intraoral pain (sores in mouth). Pharyngeal phase primarily marked by reduced closure of the airway during deglutition attributed to reduced anterior hyoid excursion resulting in poor laryngeal vestibule closure / pressure, with inconsistent laryngeal vestibule pressure generated to expel penetrated material; and mild pharyngeal dysmotility attributed to mild reductions in tongue based retraction and posterior pharyngeal stripping wave action resulting in pharyngeal retention within the valleculae and pyriforms; with overt prandial aspiration of thin liquids during large bolus volumes ingested in a sequential manner. All deficits ameliorated with bolus volume adjustments and liquid wash. Patient noted to overtly aspirate during trials of thin liquids, suggesting clinical assessment at bedside relying on identification of classic overt signs and symptoms of aspiration may be sufficient to determine appropriateness for PO texture upgrade to thin liquids. RECOMMENDATIONS: Would consider outpatient skilled speech-language intervention targeting continued diet texture management; training and implementation of recommended compensatory strategies; and training / implementation of recommended oropharyngeal strengthening exercises to facilitate improved laryngeal vestibule closure / pressure, and pharyngeal motility, ADDITIONAL COMMENTS/RECOMMENDATIONS: Results and recommendations were discussed extensively with the Patient immediately following MBS completion, with the Patient verbalizing understanding and agreement with all recommendations and education provided. IMAGE COUNT: [id number] G-CODES: SWALLOWING [id number] Current Status: CJ SWALLOWING [id number] Goal Status: CI SWALLOWING [id number] Discharge Status:
== END ==
LOC: RAD 12:38
PROVIDERS: Family Provider Student in an Organized Health Care Education/Training Program; PCP Student in an Organized Health Care Education/Training Program; Visit Provider Internal Medicine Hematology & Oncology
DX: C34.90 Malignant neoplasm of unspecified part of unspecified bronchus or lung (principal); R13.10 Dysphagia, unspecified
CPT/HCPCS: 74230; 92611; G8996; G8997; G8998

== ENCOUNTER → 2017-12-26 08:09 | Outpatient (CLI) | payer MEDICARE, SELFPAY ==
--- NOTE | 2017-12-26 08:15 | RAD_ITS ---
STUDY: X-RAY - ESOPHAGUS (BARIUM SWALLOW) WITH FLUOROSCOPY REASON FOR EXAM: Male, 72 years old. History of lung cancer. Dysphagia. History of aspiration. TECHNIQUE: 21 view(s) of the esophagus were obtained following swallowing of barium. FLUOROSCOPY TIME (if supplied): (0:42) minutes/seconds COMPARISON: None. FINDINGS: There is no demonstrated esophageal foreign body. There is no demonstrated stricture or mucosal abnormality. There is a small hiatal hernia of the fundus of the stomach. The patient ingested a 12 mm tablet of barium without any difficulty. There is atherosclerotic tortuosity of the aortic arch and descending thoracic aorta. Normal visualized pulmonary parenchyma. There are diffuse degenerative changes of the visualized thoracic spine. RAD/Esophagus Only IMPRESSION: Small sliding hiatal hernia without gastroesophageal reflux. Electronically Signed: Juan Winslow MD at 10:23 EDT Tel [phone], Service support ,
== END ==
PROVIDERS: Family Provider Student in an Organized Health Care Education/Training Program; PCP Student in an Organized Health Care Education/Training Program; Visit Provider Internal Medicine Hematology & Oncology
DX: C34.90 Malignant neoplasm of unspecified part of unspecified bronchus or lung (principal); R13.10 Dysphagia, unspecified
CPT/HCPCS: 74220